=== PATIENT | female | born 1960 | race African-American/Black ===

== ENCOUNTER → 2018-07-29 | Day surgery (SDC) | payer OTHER ==
[2018-07-27 13:27] LABS: BASOPHILS % 0.6 % (0.0-1.0); EOSINOPHILS # (AUTO) 0.1 (0.0-0.4); EOSINOPHILS % 1.3 % (0.0-6.0); HEMATOCRIT 34.9 % (34.2-44.1); HEMOGLOBIN 11.9 g/dL (12.0-16.0); LYMPHOCYTES # (AUTO) 2.4 (1.0-3.2); LYMPHOCYTES % 51.6 % (18.0-39.1); MEAN CORPUSCULAR HEMOGLOBIN 30.8 pg (28-32); MEAN CORPUSCULAR HGB CONC 34.1 g/dL (31-35); MEAN CORPUSCULAR VOLUME 90.4 fL (81-99); MONOCYTES # (AUTO) 0.4 (0.2-0.8); MONOCYTES % 7.6 % (4.4-11.3); NEUTROPHILS # (AUTO) 1.8 (2.1-6.9); NEUTROPHILS % 38.7 % (38.7-80.0); PLATELET COUNT 271 x10e3/uL (140-360); RED BLOOD COUNT 3.86 x10e6/uL (3.6-5.1); RED CELL DISTRIBUTION WIDTH 14.3 % (11.7-14.4)
[2018-07-27 13:39] LABS: ANION GAP 13.8 mmol/L (8-16); BLOOD UREA NITROGEN 14 mg/dL (7-26); BUN/CREATININE RATIO 14 (6-25); CALCIUM 9.4 mg/dL (8.4-10.2); CARBON DIOXIDE 22 mmol/L (22-29); CHLORIDE 103 mmol/L (98-107); CREATININE, SERUM 0.98 mg/dL (0.57-1.11); EST GLOMERULAR FILTRATION RATE > 60 ML/MIN (60-); GLUCOSE 111 mg/dL (74-118); POTASSIUM 3.8 mmol/L (3.5-5.1); SODIUM 135 mmol/L (136-145)
[~2018-07-29] MED LIST: AMITRIPTYLINE H25 MG PO; AMLODIPINE BESY10 MG PO; BUPIVACAINE 0.5%/EPI 30 ML SDV INJ ONE; BUPROPION XL150 MG PO; CEFAZOLIN SOD 2 GM/D5W 50ML 50 ML IV ONE; CRESTOR10 MG PO; DEXAMETHASONE SOD PHOS INJ 4 MG/ML VIAL ONE; DICYCLOMINE HCL20 MG PO; FENTANYL CITRATE/PF 100MCG/2 ML INJ ONE; GABAPENTIN100 MG PO; HYDROMORPHONE 2MG/ML 2 MG/ML ML ONE; KETOROLAC TROMETHAMINE 30 MG/ML VIAL ONE; LASIX20 MG PO; LIDOCAINE HCL 2% LOCAL INJ 5 ML SDV VIAL INJ ONE; LOSARTAN-HCTZ1 EACH PO; MIDAZOLAM HCL 2 MG/2 ML VIAL ONE; ONDANSETRON HCL INJ 2MG/ML 2ML 2 MG/ML VIAL ONE; PREMARIN0.625 MG PO; PROMETHAZINE HCL (IM) 25 MG/ML VIAL ONE; PROPOFOL IV EMULSION 10 MG/ML 20 ML VIAL ONE; SEVOFLURANE INHAL SOLN 250 ML PEN BTL ONE; XARELTO10 MG PO
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
--- OUTSIDE RECORDS SUMMARY | 2018-07-29 07:46 | XMS REPORT | Clinical Summary ---
Author Author [facility] Organization [facility] Address Unknown Phone Unavailable Care Team Providers Care Proof Tester Name Role Phone System, Provider Not In MD PCP Unavailable Allergies Comments Active Allergy Reactions Severity Noted Date Morphine 03/21/2017 Sulfa (Sulfonamide 03/21/2017 Antibiotics) Medications End Date Status Medication Sig Dispensed Refills Start Date Active furosemide (LASIX) 20 mg Take 20 mg by 0 tablet mouth 2 (two) times a day. Active rosuvastatin (CRESTOR) 10 Take 10 mg by 0 MG tablet mouth daily. Active ioCTFIEcst-cajhktioj-ugnk Take by mouth 0 iazid 10-160-12.5 mg daily. tablet Active sertraline (ZOLOFT) 100 Take 100 mg 0 MG tablet by mouth daily. Active estrogens, conjugated, Take 0.625 mg 0 (PREMARIN) 0.625 MG by mouth tablet daily. Take daily for 21 days then do not take for 7 days. Active Problems Not on file Social History Date Tobacco Use Types Packs/Day Years Used Never Smoker Smokeless Tobacco: Never Used Alcohol Use Drinks/Week oz/Week Comments No Sex Assigned at Date Recorded Not on file Industry Job Start Date Occupation Not on file Not on file Not on file Travel End Travel History Travel Start No recent travel history available. Last Filed Vital Signs Not on file Plan of Treatment Health Maintenance Due Date Last Done Comments CERVICAL CANCER SCREENING 1982 BREAST CANCER SCREENING 12/17/2011 COLON CANCER SCREENING 12/17/2011 SHINGLES VACCINES (#1) 12/17/2011 INFLUENZA VACCINE 10/22/2018 Results Not on fileafter 07/28/2017 Insurance Payer Benefit Subscriber ID Type Phone Address Plan / Group [employer] xxxxxxxxx [facility] Advance Directives Patient has advance care planning documents on file. For more information, jazmin keen contact: Gilles Garcia [address] [place] [address]
--- OUTSIDE RECORDS SUMMARY | 2018-07-29 07:46 | XMS REPORT ---
Author Author [facility] Address Unknown Phone Unavailable Care Team Providers Care Chief Diversity Officer Name Role Phone Unavailable Unavailable Payers Payer Name Policy Type Policy Number Effective Date Expiration Date Problems This patient has no known problems. Allergies, Adverse Reactions, Alerts Allergy Name Allergy Type Status Severity Reaction(s) Onset Date Inactive Date Treating Clinician Comments Sulfa (Sulfonamide Antibiotics) DA Active NC 2018-06-09 00:00:00 adhesive tape DA Active 2018-06-09 00:00:00 Sulfa (Sulfonamide Antibiotics) DA Active NC 2018-02-25 00:00:00 adhesive tape DA Active 2018-02-25 00:00:00 Sulfa (Sulfonamide Antibiotics) DA Active NC 2018-02-13 00:00:00 adhesive tape DA Active 2018-02-13 00:00:00 Sulfa (Sulfonamide Antibiotics) DA Active NC 2016-06-26 00:00:00 codeine DA Active 2016-06-26 00:00:00 adhesive tape DA Active 2016-06-26 00:00:00 Medications This patient has no known medications. Results Test Description Test Time Test Comments Text Results Atomic Results Result Comments BASIC METABOLIC PANEL 2018-06-10 07:14:00 SODIUM (test code=NA) 138 mmol/L 137-145 POTASSIUM (test code=K) 4.0 mmol/L 3.4-5.0 CHLORIDE (test code=CL) 100 mmol/L 98-107 CARBON DIOXIDE (test code=CO2) 31 mmol/L 22-30 GLUCOSE (test code=GLU) 80 mg/dL 74-106 BLOOD UREA NITROGEN (test code=BUN) 10 mg/dL 7-17 GLOMERULAR FILTRATION RATE (test code=GFR) >=60 max estimate >60 The estimated glomerular filtration rate is computed usingpatient race, age (>18), sex, and serum creatinine. If anyof the needed data elements are missing the Laboratory cannot compute an estimation of the glomerular filtration rate. CREATININE (test code=CREAT) 1.0 mg/dL 0.5-1.0 CALCIUM (test code=CA) 9.3 mg/dL 8.4-10.2 CBC W/AUTO [id number] 06:57:00* Test Item Value Reference Range Comments WHITE BLOOD CELL (test code=WBC) 5.2 x10 3/uL 5.0-12.0 RED BLOOD CELL (test code=RBC) 4.33 x10 6/uL 4.20-5.40 HEMOGLOBIN (test code=HGB) 13.0 g/dL 12.0-16.0 HEMATOCRIT (test code=HCT) 40.1 % 36.0-46.0 MEAN CELL VOLUME (test code=MCV) 93 fL 81-99 MEAN CELL HGB (test code=MCH) 30.0 pg 27-31 MEAN CELL HGB CONCENTRATION (test code=MCHC) 32.4 g/dL 33-37 RED CELL DISTRIBUTION WIDTH (test code=RDW) 13.4 % 11.5-15.5 PLATELET COUNT (test code=PLT) 268 x10 3/uL 130-400 MEAN PLATELET VOLUME (test code=MPV) 9.1 fL 9.4-16.4 NEUTROPHIL % (test code=NT%) 33.6 % 43-65 IMMATURE GRANULOCYTE % (test code=IG%) 0.0 % 0.0-2.0 LYMPHOCYTE % (test code=LY%) 56.2 % 20.5-45.5 MONOCYTE % (test code=MO%) 6.9 % 5.5-11.7 EOSINOPHIL % (test code=EO%) 2.7 % 0.9-2.9 BASOPHIL % (test code=BA%) 0.6 % 0.2-1.0 NUCLEATED RBC % (test code=NRBC%) 0.0 % 0-1.0 NEUTROPHIL # (test code=NT#) 1.75 x10 3/uL 2.2-4.8 IMMATURE GRANULOCYTE # (test code=IG#) 0.00 x10 3/uL 0-0.03 LYMPHOCYTE # (test code=LY#) 2.92 x10 3/uL 1.3-2.9 MONOCYTE # (test code=MO#) 0.36 x10 3/uL 0.3-0.8 EOSINOPHIL # (test code=EO#) 0.14 x10 3/uL 0.0-0.2 BASOPHIL # (test code=BA#) 0.03 x10 3/uL 0.0-0.1 COMPREHENSIVE METABOLIC [id number] 17:40:00* Test Item Value Reference Range Comments SODIUM (test code=NA) 141 mmol/L 137-145 POTASSIUM (test code=K) 3.9 mmol/L 3.4-5.0 CHLORIDE (test code=CL) 105 mmol/L 98-107 CARBON DIOXIDE (test code=CO2) 29 mmol/L 22-30 GLUCOSE (test code=GLU) 82 mg/dL 74-106 BLOOD UREA NITROGEN (test code=BUN) 12 mg/dL 7-17 GLOMERULAR FILTRATION RATE (test code=GFR) >=60 max estimate >60 The estimated glomerular filtration rate is computed usingpatient race, age (>18), sex, and serum creatinine. If anyof the needed data elements are missing the Laboratory cannot compute an estimation of the glomerular filtration rate. CREATININE (test code=CREAT) 0.9 mg/dL 0.5-1.0 TOTAL PROTEIN (test code=PROT) 7.3 g/dL 6.3-8.2 ALBUMIN (test code=ALB) 4.0 g/dL 3.5-5.0 CALCIUM (test code=CA) 8.8 mg/dL 8.4-10.2 BILIRUBIN TOTAL (test code=BILT) 0.4 mg/dL 0.2-1.3 BILIRUBIN CONJUGATED (test code=BILCON) 0 mg/dL 0-0.3 ~~~~~~~~~~~~~~~~~~~~~~~~~~~~~~~~~~~~~~~~~~~~~~~~~~~~~~~~~~~~CONJUGATED BILIRUBIN IS THE REPLACEMENT ASSAY FOR DIRECTBILIRUBIN.~~~~~~~~~~~~~~~~~~~~~~~~~~~~~~~~~~~~~~~~~~~~~~~~~~~~~~~~~~~~ BILIRUBIN UNCONJUGATED (test code=BILUNC) 0 mg/dL 0-1.1 SGOT/AST (test code=AST) 19 U/L 15-46 SGPT/ALT (test code=ALT) 21 U/L 13-69 ALKALINE PHOSPHATASE (test code=ALKP) 56 U/L 38-126 LIPID PROFILE (CORONARY RISK)2018-06-09 08:59:00* Test Item Value Reference Range Comments TRIGLYCERIDES (test code=TRIG) 87 mg/dL TRIGLYCERIDES REFERENCE RANGE:Normal: <150 mg/dLBorderline High: 150-199 mg/dLHigh: 200-499 mg/dLVery High: >=500 mg/dL CHOLESTEROL (test code=CHOL) 184 mg/dL CHOLESTEROL REFERENCE RANGE:DESIRABLE: < 200 mg/dLBORDERLINE: 200-239 mg/dLHIGH: >=240 mg/dL HDL CHOLESTEROL (test code=HDL) 60 mg/dL 40-59 LIPOPROTEIN LDL (test code=LDLC) 80.95 mg/dL 32-99 CORONARY RISK FACTOR (test code=RISK) 3.07 CHOL/HDL RISK MALE: 1/2 AVG 3.43 FEMALE: 1/2 AVG 3.27 AVG 4.97 AVG 4.44 2X AVG 9.55 2X AVG 7.05 3X AVG 23.39 3X AVG 11.04~~~~~~~~~~~~~~~~~~~~~~~~~~~~~~~~~~~~~~~~~~~~~~~~~~~~~~~~~~~~National Cholesterol Education (NCEP) Guidelines:~~~~~~~~~~~~~~~~~~~~~~~~~~~~~~~~~~~~~~~~~~~~~~~~~~~~~~~~~~~~ HDL Cholesterol<40mg/dL: HDL Cholesterol (Major risk factor for CHD)>60mg/dL: HDL Cholesterol (Negative risk factor for CHD)40-59mg/dL: Borderline Risk LDL Cholesterol<100mg/dL: Desirable LDL-C bccxkfokleyyp812-183ta/dL: Borderline High Risk LDL-C esrzrsdviyifm216-312sx/dL: High risk LDL-C concentration HDL-LDL Cholesterol is affected by a number of factors suchas smoking, age and sex.~~~~~~~~~~~~~~~~~~~~~~~~~~~~~~~~~~~~~~~~~~~~~~~~~~~~~~~~~~~~ LIPID PROFILE (CORONARY RISK)2018-06-09 08:49:00* Test Item Value Reference Range Comments TRIGLYCERIDES (test code=TRIG) 87 mg/dL TRIGLYCERIDES REFERENCE RANGE:Normal: <150 mg/dLBorderline High: 150-199 mg/dLHigh: 200-499 mg/dLVery High: >=500 mg/dL CHOLESTEROL (test code=CHOL) 184 mg/dL CHOLESTEROL REFERENCE RANGE:DESIRABLE: < 200 mg/dLBORDERLINE: 200-239 mg/dLHIGH: >=240 mg/dL HDL CHOLESTEROL (test code=HDL) 60 mg/dL 40-59 LIPOPROTEIN LDL (test code=LDLC) mg/dL 32-99 CORONARY RISK FACTOR (test code=RISK) 3.07 CHOL/HDL RISK MALE: 1/2 AVG 3.43 FEMALE: 1/2 AVG 3.27 AVG 4.97 AVG 4.44 2X AVG 9.55 2X AVG 7.05 3X AVG 23.39 3X AVG 11.04~~~~~~~~~~~~~~~~~~~~~~~~~~~~~~~~~~~~~~~~~~~~~~~~~~~~~~~~~~~~National Cholesterol Education (NCEP) Guidelines:~~~~~~~~~~~~~~~~~~~~~~~~~~~~~~~~~~~~~~~~~~~~~~~~~~~~~~~~~~~~ HDL Cholesterol<40mg/dL: HDL Cholesterol (Major risk factor for CHD)>60mg/dL: HDL Cholesterol (Negative risk factor for CHD)40-59mg/dL: Borderline Risk LDL Cholesterol<100mg/dL: Desirable LDL-C jilcypbwhpjgj996-885in/dL: Borderline High Risk LDL-C gymfcuvoahkmq226-297kc/dL: High risk LDL-C concentration HDL-LDL Cholesterol is affected by a number of factors suchas smoking, age and sex.~~~~~~~~~~~~~~~~~~~~~~~~~~~~~~~~~~~~~~~~~~~~~~~~~~~~~~~~~~~~ - CT ABD PELVIS [id number] 04:26:00 [place]: St: REG Name: MIGUEL WALLACE [facility] : 2 Age/S: 57/F [address] Unit: [id number] Loc: [place] [address] Phys: Cheli Arroyo Acct: [id number] Dis Date: Status: REG ER PHONE #: [phone] Exam Date: 06/09/2018 0125 FAX #: [phone] Reason: BLOOD IN STOOL EXAMS: CPT CODE: [id number] CT ABD PELVIS W/CONT 26189 EXAM: - CT ABD PELVIS W/CONT INDICATION: 57 years -old Female with BLOOD IN STOOL Loc ation code:C3 TECHNIQUE: Axial CT images were obtained of the abdo men after the use of intravenous contrast. Delayed images through the abd omen were obtained. Reconstructions - coronal and sagittal planes Automated exposure reduction (Auto mA/Smart mA) was utilized in com pliance with ACR Image Wisely with DLP of 544.01 mGy-cm. COMPARISO N: 02/13/2018 FINDINGS: Statements: Thoracic: Atelectasis is seen at the lung bases. Hepatobiliary: The liver is normal without focal lesion. The gallbladder is normal. No biliary dilati on. Pancreas: Normal. Spleen: Normal. Adrenals: Normal. Genitourinary: The right kidney surgically abse nt. Simple cyst in the left kidney is unchanged. Evaluation of the bladde r is limited, but no obvious bladder abnormality is present. Gastrointestinal: Colonic diverticulosis is present without CT evidence of diverticulitis. The appendix is not visualized. Vascular: Athero sclerotic calcifications are seen within the aorta and branch vessels. Lymphatics: No enlarged lymph nodes by CT size criteria. Bones/Soft Tissues: No acute osseous findings. No ventral hernias. Peritoneum/Other: No extraluminal air. No extraluminal fluid. PAGE 1 Signed Report (CONTINUED) [place]: St: REG Name: MIGUEL DICK [facility] : 1960 Age/S: 57/F [address] Unit: [id number] Loc: [place] [address] Phys: Cheli Arroyo Acct: [id number] Dis Date: tus: ER PHONE #: [phone] Exam Date : 06/09/2018 0125 FAX #: [phone] Reason: BLOOD I N STOOL EXAMS: CPT CODE: [id number] CT ABD PELVIS W/CONT 61437 <Continued> IMPRESSION: 1. Colonic diverticulosis is present without CT evidence of diverticulitis. 2. Status post right nephrectomy with other chronic findings as above. at 0426 Reported and signed by: Matt Jeffery MD CC: Technologist: Rich Ramirez [facility] Dt/Tm: 06/09/2018 (0426) [id number] Orig Print D/T: S: 06/09/2018 (0424 PAGE 2 Signed Report UA RFLX MICR CULT IF INDICATED 2018-06-09 01:39:00* Test Item Value Reference Range Comments UA COLOR (test code=COLU) Yellow Yellow UA APPEARANCE (test code=APPU) Cloudy Clear UA GLUCOSE DIPSTICK (test code=DGLUU) Negative Negative UA BILIRUBIN DIPSTICK (test code=BILU) Negative Negative UA KETONE DIPSTICK (test code=KETU) Negative mg/dL Negative UA SPECIFIC GRAVITY (test code=SGU) 1.017 <1.030 UA BLOOD DIPSTICK (test code=MORGAN) Negative Negative UA PH DIPSTICK (test code=ELIAZAR) 6.0 5.0-8.0 UA PROTEIN DIPSTICK (test code=PROU) NEGATIVE mg/dL Negative UA UROBILINOGEN DIPSTICK (test code=URO) Negative mg/dL Negative UA NITRITE DIPSTICK (test code=ANTONIA) Negative Negative UA LEUKOCYTE ESTERASE DIPSTICK (test code=LEUU) 3+ Negative UA WBC (test code=WBCUR) 6-10 /HPF <4-5 <10 WBC/HPF=PYURIA ABSENT URINE CULTURE NOT INDICATED UA RBC (test code=RBCU) 11-20 /HPF <4-5 UA BACTERIA (test code=BACU) 2+ /HPF None-Rare UA SQUAMOUS CELLS (test code=SQU) >25 (MANY) /HPF 0-5 (RARE) UA HYALINE CAST (test code=HYALU) 0-3 /LPF <4-5 UA MUCUS (test code=MUCU) Rare /LPF <Rare less than 18 yrs old, neutropenic, or urological surgery? NOPrimary Indication f or Culture: Suprapubic PainBEDSIDE [id number] 01:18:00* Test Item Value Reference Range Comments BEDSIDE CREATININE (test code=CREATBED) 1.2 mg/dL 0.52-1.04 BASIC METABOLIC [id number] 00:44:00* Test Item Value Reference Range Comments SODIUM (test code=NA) 137 mmol/L 137-145 POTASSIUM (test code=K) 5.5 mmol/L 3.4-5.0 IS THE SAMPLE HEMOLYZED?:YHEMOLYSIS GRADE:2+ CHLORIDE (test code=CL) 100 mmol/L 98-107 CARBON DIOXIDE (test code=CO2) 27 mmol/L 22-30 GLUCOSE (test code=GLU) 102 mg/dL 74-106 BLOOD UREA NITROGEN (test code=BUN) 20 mg/dL 7-17 GLOMERULAR FILTRATION RATE (test code=GFR) >=60 max estimate >60 The estimated glomerular filtration rate is computed usingpatient race, age (>18), sex, and serum creatinine. If anyof the needed data elements are missing the Laboratory cannot compute an estimation of the glomerular filtration rate. CREATININE (test code=CREAT) 1.0 mg/dL 0.5-1.0 CALCIUM (test code=CA) 9.4 mg/dL 8.4-10.2 LIVER FUNCTION [id number] 00:44:00* Test Item Value Reference Range Comments TOTAL PROTEIN (test code=PROT) 9.2 g/dL 6.3-8.2 ALBUMIN (test code=ALB) 4.9 g/dL 3.5-5.0 BILIRUBIN TOTAL (test code=BILT) 1.4 mg/dL 0.2-1.3 BILIRUBIN CONJUGATED (test code=BILCON) 0 mg/dL 0-0.3 ~~~~~~~~~~~~~~~~~~~~~~~~~~~~~~~~~~~~~~~~~~~~~~~~~~~~~~~~~~~~CONJUGATED BILIRUBIN IS THE REPLACEMENT ASSAY FOR DIRECTBILIRUBIN.~~~~~~~~~~~~~~~~~~~~~~~~~~~~~~~~~~~~~~~~~~~~~~~~~~~~~~~~~~~~ BILIRUBIN UNCONJUGATED (test code=BILUNC) 0 mg/dL 0-1.1 SGOT/AST (test code=AST) 46 U/L 15-46 SGPT/ALT (test code=ALT) < 13 U/L 13-69 ALKALINE PHOSPHATASE (test code=ALKP) 53 U/L 38-126 [id number] 00:44:00* Test Item Value Reference Range Comments LIPASE (test code=LIP) 95 U/L 23-300 TROPONIN I [id number] 00:38:00* Test Item Value Reference Range Comments TROPONIN I RAPID (test code=TROPIRAP) 0.01 ng/mL 0.00-0.079 ISTAT TROPONIN I CRITERIA0.00-0.08 ng/mL - Negative>0.08 ng/mL - Positive The use of serial sampling and testing protocol is arecommended practice.An elevated troponin level alone is often not sufficient fordiagnosis of myocardial infarction. Troponin results obtained by different assays may vary.Evaluation of the extent of myocardial damage based onincrease of troponin would be valid only if similarmethodology is used. PROTHROMBIN [id number] 00:37:00* Test Item Value Reference Range Comments PROTHROMBIN TIME PATIENT (test code=PTP) 13.1 SECONDS 9.2-12.1 INTERNATIONAL NORMAL RATIO (test code=INR) 1.2 The INR is to be used only for monitoring ORAL ANTICOAGULANTTHERAPY. Indication INR Value1. Prophylaxis/treatment of: Venous Thrombosis, Pulmonary Embolism 2.0 - 3.02. Prevention of systemic embolism from: Tissue heart valves 2.0 - 3.0 Acute myocardial infarction (to present systemic embolism)* 2.0 - 3.0 Valvular heart disease 2.0 - 3.0 Atrial fibrillation 2.0 - 3.03. Mechanical prosthetic valves (high risk) 2.5 - 3.5 * If oral anticoagulant therapy is elected to preventrecurrent myocardial infarction, an INR of 2.5-3.5 isrecommended, consistent with Food and Drug Administrationrecommendations. IS PATIENT ON ANTICOAGULANTS ? NTHROMBOPLASTIN TIME [id number] 00:37:00* Test Item Value Reference Range Comments THROMBOPLASTIN TIME PARTIAL (test code=PTT) 28.0 SECONDS 23.4-37.0 Therapeutic Range for Heparin EFFECTIVE 09/30/12 Heparin IU/mL aPTT Seconds0.3 64.30.7 88.8 IS PATIENT ON ANTICOAGULANTS ? NCBC W/AUTO [id number] 00:37:00* Test Item Value Reference Range Comments WHITE BLOOD CELL (test code=WBC) 5.5 x10 3/uL 5.0-12.0 RED BLOOD CELL (test code=RBC) 4.08 x10 6/uL 4.20-5.40 HEMOGLOBIN (test code=HGB) 12.6 g/dL 12.0-16.0 HEMATOCRIT (test code=HCT) 37.8 % 36.0-46.0 MEAN CELL VOLUME (test code=MCV) 93 fL 81-99 MEAN CELL HGB (test code=MCH) 30.9 pg 27-31 MEAN CELL HGB CONCENTRATION (test code=MCHC) 33.3 g/dL 33-37 RED CELL DISTRIBUTION WIDTH (test code=RDW) 13.5 % 11.5-15.5 PLATELET COUNT (test code=PLT) 257 x10 3/uL 130-400 MEAN PLATELET VOLUME (test code=MPV) 8.8 fL 9.4-16.4 NEUTROPHIL % (test code=NT%) 37.2 % 43-65 IMMATURE GRANULOCYTE % (test code=IG%) 0.2 % 0.0-2.0 LYMPHOCYTE % (test code=LY%) 52.6 % 20.5-45.5 MONOCYTE % (test code=MO%) 7.7 % 5.5-11.7 EOSINOPHIL % (test code=EO%) 1.6 % 0.9-2.9 BASOPHIL % (test code=BA%) 0.7 % 0.2-1.0 NUCLEATED RBC % (test code=NRBC%) 0.0 % 0-1.0 NEUTROPHIL # (test code=NT#) 2.03 x10 3/uL 2.2-4.8 IMMATURE GRANULOCYTE # (test code=IG#) 0.01 x10 3/uL 0-0.03 LYMPHOCYTE # (test code=LY#) 2.87 x10 3/uL 1.3-2.9 MONOCYTE # (test code=MO#) 0.42 x10 3/uL 0.3-0.8 EOSINOPHIL # (test code=EO#) 0.09 x10 3/uL 0.0-0.2 BASOPHIL # (test code=BA#) 0.04 x10 3/uL 0.0-0.1
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
[2018-07-29 14:45] VITALS: BP 128/78
--- NOTE | 2018-07-30 23:46 | Operative Report ---
DATE OF PROCEDURE: 07/29/2018 SURGEON: Morales Camargo MD PREOPERATIVE DIAGNOSIS: Right knee medial meniscus tear and right knee degenerative joint disease of the knee. POSTOPERATIVE DIAGNOSIS: Right knee medial meniscus tear and right knee degenerative joint disease of the knee. OPERATION AND PROCEDURE PERFORMED: The patient underwent a right knee exam under anesthesia, right knee arthroscopy, right knee partial medial meniscectomy, right knee chondroplasty of the patella, the trochlea, the medial femoral condyle, the medial tibial plateau, the lateral femoral condyle and lateral tibial plateau. ENVIRONMENTAL HEALTH SPECIALIST: FILEMON Almanza ANESTHESIA: General endotracheal intubation anesthesia. IV FLUIDS: As per the anesthesia record. BRIEF DESCRIPTION OF THE PATIENT'S OPERATIVE PROCEDURE: Ms. Issa was taken to the operating room, placed in supine position on the operating table. Following induction of general anesthesia as well as endotracheal intubation, the patient's right lower extremity was examined under anesthesia. She was found to have a mild effusion within the joint, but otherwise ligamentously stable knee. The patient's lower extremities were prepped and draped in standard surgical fashion. A two-port technique was used to provide this patient arthroscopic evaluation of the knee joint. Examination of suprapatellar pouch, medial lateral gutters found no evidence of loose bodies. There was, however, evidence of chondromalacia of the patella and trochlear surfaces. Scope was advanced in medial compartment. Examination of the medial compartment demonstrated a tear of the posterior horn of the medial meniscus. There was also chondromalacia of the articulating surfaces. A combination of biting forceps and motorized shaver were used to resect the torn portion of meniscus. Chondroplasties of the medial femoral condyle and medial tibial plateau performed at this time. Scope was advanced to the intercondylar notch. The anterior cruciate ligament was identified and found to be intact. Scope was advanced in the lateral compartment and there was chondromalacia articulating surfaces. Chondroplasties of the lateral femoral condyle and lateral tibial plateau were performed at this time. Scope was then placed in suprapatellar pouch and chondroplasties of the patella and trochlea were performed. The knee was deflated with sterile normal saline. The portal sites were closed with 4-0 nylon suture. The portal sites as well as knee itself were injected 0.5% Marcaine with epinephrine. Sterile dressings were applied and the patient was awakened, taken to the postanesthesia care in stable condition. MD DELVIS Bentley/ANA /[id number]
== END | disposition home or self-care (01) ==
LOC: OR 07:43
PROVIDERS: ATTEND Specialist
DX: S83.221A Peripheral tear of medial meniscus, current injury, right knee, initial encounter (principal); M17.0 Bilateral primary osteoarthritis of knee; M22.41 Chondromalacia patellae, right knee; I10 Essential (primary) hypertension; N28.9 Disorder of kidney and ureter, unspecified; K21.9 Gastro-esophageal reflux disease without esophagitis; F32.9 Major depressive disorder, single episode, unspecified; F41.9 Anxiety disorder, unspecified; Z88.2 Allergy status to sulfonamides; Z01.810 Encounter for preprocedural cardiovascular examination; Z01.812 Encounter for preprocedural laboratory examination; Z79.02 Long term (current) use of antithrombotics/antiplatelets; Z68.31 Body mass index [BMI] 31.0-31.9, adult; Z86.718 Personal history of other venous thrombosis and embolism
CPT/HCPCS: 29881; 36415; 80048; 85025; 93005; J0690; J1100; J1170; J1885; J2001; J2250; J2405; J2550; J2704